=== PATIENT | male | born 1970 | race Caucasian/White ===

== ENCOUNTER → 2017-08-23 08:41 | Outpatient (CLI) | payer BC, SELFPAY ==
--- NOTE | 2017-08-23 08:45 | RAD_ITS ---
STUDY: X-RAY - LEFT KNEE REASON FOR EXAM: Male, 47 years old. Continued and the pain postop TECHNIQUE: 4 view(s) of the knee. COMPARISON: None. FINDINGS: There are postoperative changes in the distal femur and proximal tibia related to prior ACL reconstruction. Normal proximal tibiofibular articulation. There is moderate degenerative arthrosis of the medial femorotibial compartment with moderate joint space narrowing. Normal lateral femorotibial compartment. Normal patellofemoral articulation. The soft tissue structures are unremarkable. RAD/Knee 4 or More Views IMPRESSION: Status post ACL reconstruction. Moderate arthrosis of the medial compartment Electronically Signed: Jose Lane MD, FACR at 8:58 EST , Service support ,
== END ==
PROVIDERS: Visit Provider Orthopaedic Surgery
DX: M25.562 Pain in left knee (principal)
CPT/HCPCS: 73564

== ENCOUNTER 2017-08-30 07:45 | Outpatient (RCR) | payer BC, SELFPAY ==
--- NOTE | 2017-08-30 10:02 | HP.PTEVAL ---
Patient's Visit Information FARA MARADIAGA is a 47 year old M referred to Physical Therapy by DO LEONARDO Lazo with a diagnosis of L IT BAnd tightness and L knee OA. Date of Evaluation: 08/30/17 Physical Therapist: Mamie Damon - Visit Plan Frequency: 2x /Week Duration: 4 Weeks Plan: 2X/ week for 4 weeks for foam rolling, IT band, TFL, HS - Subjective Subjective: Pt reports that his L knee swells a little. He fees like there is a igament that bounces over the side of his knee and it aches and swells. He has taken it easy this winter. He is able to run on the elliptical machine and it doesn't bother it. He coaches football and runs alot. He was walking on a lot of sand and muddy soils and that bothers it. No MRI as of yet. The knee will make a clicking sound and he feels like it is alos up in the hip. He will have that shifting in his knee and will ache for a month or two. No injections. Stairs are ok most of the time. Its hard to put on shoes or tie shoes. When they work on low back in chiro then the knee feels better - Pain L knee pain Pain Intensity (Out of 10): 1 Pain Intensity Range: 5 - Objective Tight L IT band. Observation: obvious increase in size of tissue a t fibular head and It band insertion. Tender at IT Band insertion and along the band on the L....tender posterior hip musculature and lower lumbar along the iliac crest. Tight B HS and gastroc complex B but worse on the L. Trunk AROM: flex 100%, ext 75%, SB B 75%. LE MMT: hip flex B 4+/5, knee ext B 4+/5, knee flex L 4-/5 with increase clunking with resisted MMT and R knee flex 4+/5. Hip ext B 4/5. Pt is able to walk on heels and toes without issue. Gait: pt walks with decreased stance time on the L. OHS: increase favor on the R, toe out, knees over toes. - Goals Goal 1:: I HEP including foam rolling Goal Time Frame: 4-6 Weeks Goal 2:: Be able to run without having increase in knee pain and swell (pain 1/10 or less after running) Goal Time Frame: 4-6 Weeks Goal 3:: Decrease size of swelling at fibular head and IT band insertion Goal Time Frame: 4-6 Weeks - Rehabilitation Potential Rehabilitation Potential: Good - Anticipated Interventions Patient/Client Instruction: Educate patient on: Condition, Plan of Care For the Purpose of:: To decrease pain, To decrease swelling/inflammation, To improve nutrient delivery to tissue, To improve muscle performance and motor function, To improve ability to perform ADL's, To increase tolerance to activity/condition/position Therapeutic Exercise to Include: Strength training, Flexibilty training, Passive ROM, Active ROM, Dynamic Lumbar Stabilization For the Purpose of:: To decrease pain, To increase ROM, To improve nutrient delivery to tissue, To improve muscle performance and motor function, To improve ability to perform ADL's, To increase tolerance to activity/condition/position, To improve health of tissue Manual Therapy Techniques to Include: Mobilization, Soft tissue mobilization For the Purpose of:: To decrease pain, To increase ROM, To improve nutrient delivery to tissue, To improve muscle performance and motor function Thermo therapy (hot pack): Yes Ultrasound (thermal/non thermal): Yes For the Purpose of:: To decrease pain, To decrease swelling/inflammation, To increase ROM, To improve nutrient delivery to tissue Thank you for the opportunity to evaluate your patient. For Medicare and Medicare HMO plans, please review the plan of care and approve it. It will need to be FAXED BACK to us at [phone] for Medicare purposes. Please let me know if there are questions or concerns regarding this plan of care. Physician Signature: Date:
--- NOTE | 2017-08-30 10:07 | HP.PTEVAL_ITS ---
Patient's Visit Information FARA MARADIAGA is a 47 year old M referred to Physical Therapy by DO LEONARDO Lazo with a diagnosis of L IT BAnd tightness and L knee OA. Date of Evaluation: 08/30/17 Physical Therapist: Mamie Damon - Visit Plan Frequency: 2x /Week Duration: 4 Weeks Plan: 2X/ week for 4 weeks for foam rolling, IT band, TFL, HS - Subjective Subjective: Pt reports that his L knee swells a little. He fees like there is a igament that bounces over the side of his knee and it aches and swells. He has taken it easy this winter. He is able to run on the elliptical machine and it doesn't bother it. He coaches football and runs alot. He was walking on a lot of sand and muddy soils and that bothers it. No MRI as of yet. The knee will make a clicking sound and he feels like it is alos up in the hip. He will have that shifting in his knee and will ache for a month or two. No injections. Stairs are ok most of the time. Its hard to put on shoes or tie shoes. When they work on low back in chiro then the knee feels better - Pain L knee pain Pain Intensity (Out of 10): 1 Pain Intensity Range: 5 - Objective Tight L IT band. Observation: obvious increase in size of tissue a t fibular head and It band insertion. Tender at IT Band insertion and along the band on the L....tender posterior hip musculature and lower lumbar along the iliac crest. Tight B HS and gastroc complex B but worse on the L. Trunk AROM: flex 100%, ext 75%, SB B 75%. LE MMT: hip flex B 4+/5, knee ext B 4+/5, knee flex L 4-/5 with increase clunking with resisted MMT and R knee flex 4+/5. Hip ext B 4/5. Pt is able to walk on heels and toes without issue. Gait: pt walks with decreased stance time on the L. OHS: increase favor on the R, toe out, knees over toes. - Goals Goal 1:: I HEP including foam rolling Goal Time Frame: 4-6 Weeks Goal 2:: Be able to run without having increase in knee pain and swell (pain 1/ 10 or less after running) Goal Time Frame: 4-6 Weeks Goal 3:: Decrease size of swelling at fibular head and IT band insertion Goal Time Frame: 4-6 Weeks - Rehabilitation Potential Rehabilitation Potential: Good - Anticipated Interventions Patient/Client Instruction: Educate patient on: Condition, Plan of Care For the Purpose of:: To decrease pain, To decrease swelling/inflammation, To improve nutrient delivery to tissue, To improve muscle performance and motor function, To improve ability to perform ADL's, To increase tolerance to activity /condition/position Therapeutic Exercise to Include: Strength training, Flexibilty training, Passive ROM, Active ROM, Dynamic Lumbar Stabilization For the Purpose of:: To decrease pain, To increase ROM, To improve nutrient delivery to tissue, To improve muscle performance and motor function, To improve ability to perform ADL's, To increase tolerance to activity/condition/ position, To improve health of tissue Manual Therapy Techniques to Include: Mobilization, Soft tissue mobilization For the Purpose of:: To decrease pain, To increase ROM, To improve nutrient delivery to tissue, To improve muscle performance and motor function Thermo therapy (hot pack): Yes Ultrasound (thermal/non thermal): Yes For the Purpose of:: To decrease pain, To decrease swelling/inflammation, To increase ROM, To improve nutrient delivery to tissue Thank you for the opportunity to evaluate your patient. For Medicare and Medicare HMO plans, please review the plan of care and approve it. It will need to be FAXED BACK to us at [phone] for Medicare purposes. Please let me know if there are questions or concerns regarding this plan of care. Physician Signature: Date:
--- NOTE | 2017-12-07 13:49 | HP.PTDCNRP_ITS ---
HP - Discharge Summary (1) - Patient Information FARA MARADIAGA was seen in my office for initial evaluation on 08/30/17. The following Plan of Care was established for this patient: Initial Frequency: 2x /Week Initial Duration: 4 Weeks - Anticipated Interventions Patient/Client Instruction: Educate patient on: Condition, Plan of Care For the Purpose of:: To decrease pain, To decrease swelling/inflammation, To improve nutrient delivery to tissue, To improve muscle performance and motor function, To improve ability to perform ADL's, To increase tolerance to activity /condition/position Therapeutic Exercise to Include: Strength training, Flexibilty training, Passive ROM, Active ROM, Dynamic Lumbar Stabilization For the Purpose of:: To decrease pain, To increase ROM, To improve nutrient delivery to tissue, To improve muscle performance and motor function, To improve ability to perform ADL's, To increase tolerance to activity/condition/ position, To improve health of tissue Manual Therapy Techniques to Include: Mobilization, Soft tissue mobilization For the Purpose of:: To decrease pain, To increase ROM, To improve nutrient delivery to tissue, To improve muscle performance and motor function Thermo therapy (hot pack): Yes Ultrasound (thermal/non thermal): Yes For the Purpose of:: To decrease pain, To decrease swelling/inflammation, To increase ROM, To improve nutrient delivery to tissue This patient was last seen in our office 08/30/17. Pertinent comments regarding their Physical therapy will appear below: KEVIN PT. Pt did not schedule any additional visits after his initial eval. At this point I will be discontinuing this patient from physical therapy. I would be happy to see this patient again in the future if found appropriate by the physician. Thank you! Mamie Damon
== END 2017-08-30 19:00 | disposition home or self-care (01) ==
LOC: PT 07:45
PROVIDERS: Family Provider Nurse Practitioner; PCP Nurse Practitioner; Visit Provider Orthopaedic Surgery
DX: M76.32 Iliotibial band syndrome, left leg (principal); M17.12 Unilateral primary osteoarthritis, left knee
CPT/HCPCS: 97161

== ENCOUNTER → 2019-06-05 22:26 | Outpatient (CLI) | payer OTHER, SELFPAY ==
[2019-02-26 16:59] VITALS: BMI 33.0
[2019-06-05 22:56] LABS: Absolute Lymphocyte Count 2.42 X10^3/uL (0.83-4.51); Absolute Neutrophil Count 4.7 X10^3/uL (2.0-7.7); Basophil# 0.04 X10^3/uL; Basophil% 0.5 % (0-1); Eosinophil# 0.15 X10^3/uL; Eosinophils% 1.9 % (0-5); Hematocrit 41.6 % (40-54); Hemoglobin 13.7 g/dL (13.0-16.5); Lymphocyte # 2.42 X10^3/ul (4.0); Lymphocyte % 30.7 % (19-41); Mean Corp Hgb Conc 32.9 g/dL (32-36); Mean Corpuscular Hgb 31.4 pg (27.0-32.0); Mean Corpuscular Volume 95.4 fL (80-94); Monocyte# 0.53 X10^3/uL; Monocyte% 6.7 % (0-10); NRBC Flagged by Analyzer 0 % (0-5); Neutrophil # 4.72 X10^3/uL (2.7-7.7); Neutrophil % 59.9 % (47-70); Platelet Count 252 K/mm3 (150-450); RBC Distribution Width CV 11.9 % (11.6-14.6); RBC Distribution Width SD 41.2 fl (35.1-43.9); Red Blood Count 4.36 M/mm3 (4.6-6.2); White Blood Count 7.9 K/mm3 (4.4-11.0)
[2019-06-05 23:09] LABS: ALB/GLOB Ratio 1.2 RATIO (0.9-2.4); AST(SGOT) 18 U/L (15-37); Alanine Aminotransfer ALT/SGPT 24 U/L (16-61); Albumin, Serum 4.3 g/dL (3.2-5.0); Alkaline Phosphatase 61 U/L (45-117); Anion Gap 7 (5-15); BUN 15 mg/dL (7-18); BUN/Creat Ratio 17.5 RATIO (10-20); Chloride 103 mmol/L (98-107); Cholesterol 221 mg/dL (200); Creatinine, Serum 0.86 mg/dL (0.70-1.30); EST Glomerular Filtration Rate 101 mL/min (>60); Est Glom Filt Rate - Afr Amer 123 mL/min (>60); Globulin 3.5 g/dL (2.2-4.2); Glucose 81 mg/dL (74-106); High Density Lipoprotein 50 mg/dL; Potassium 3.9 mmol/L (3.5-5.1); Protein, Total 7.8 g/dL (6.4-8.2); Sodium Level 137 mmol/L (136-145); Triglycerides 107 mg/dL; Very Low Density Lipoprotein 21 mg/dL (5-40)
== END ==
PROVIDERS: Family Provider Nurse Practitioner; PCP Nurse Practitioner; Referring Provider Nurse Practitioner; Visit Provider Nurse Practitioner
DX: Z00.00 Encounter for general adult medical examination without abnormal findings (principal)
CPT/HCPCS: 80053; 80061; 85025

== ENCOUNTER → 2023-07-21 | Outpatient (CLI) | payer BC, SELFPAY ==
--- OUTSIDE RECORDS SUMMARY | 2023-07-21 21:59 | XMS RPT_ITS | CCD ---
Author Name Unknown Address [address] [place] [address] Organization [facility] Results Test Name Value Interpretation Reference Range Facil ity Summary Purpose Family History No Family History Records FoundNo Family History Records FoundNo Family History Records Found Advance Directives No Advanced Directives Records FoundNo Advanced Directives Records FoundNo Advanced Directives Records Found Hospital Course Note HNO ID: [id number] Author: Samuel Martínez Service: Hospital Medicine Author Type: Physician Type: Discharge Summary Filed: 02/20/2019 2:47 PM Note Text: DISCHARGE SUMMARY PATIENT NAME: Fara Maradiaga Code Status: Not on file Highest Readmission Risk Score: 8 The 30 day readmissions risk score is derived from an internally validated risk model which evaluates patient level characteristics, utilization history, medication orders and lab results up until the day of discharge. Patients with a score of 40 or above are considered highest risk for readmission. Specific patient level drivers will be listed at the bottom of the summary. Admission Information Admission Information ADMIT DATE: 02/19/2019 DISCHARGE DATE: 02/20/2019 [facility]CT[facility] AND MEDICAL TEAM: [facility] Doctor: Aj Martínez Primary Care Provider: Leydi Kan NP My Medical Team Members: Treatment Team: Attending Provider: Aj Martínez Primary Service: Team 2 Me Consulting: Tej Nagy Am (more content not included)... Additional Source Comments (unrecognized sect ion and content) No Status Records FoundNo Status Records FoundNo Status Records Found INFORMATION SOURCE (unrecogn ized section and content) DATE CREATED AUTHOR AUTHOR'S ORGANIZ ATION 06/29/2019 [facility] DATE CREATED AUTHOR AUTHOR'S ORGANIZ ATION 08/18/2021 [facility] FOR RECORDS PERTAINING TO PATIENTS WHO ARE OR HAVE BEEN ENROLLED IN A CHEMICAL DEPENDENCY/SUBSTANCEABUSE PROGRAM, SOME INFORMATION MAY BE OMITTED. This clinical summary was aggregated from multiple sources. Caution should be exercised in using it in the provision of clinical care. This summary normalizes information from multiple sources, and as a consequence, information in this document may materially change the coding, format and clinical context of patient data. In addition, data may be omitted in some cases. CLINICAL DECISIONS SHOULD BE BASED ON THE PRIMARY CLINICAL RECORDS. [facility] [employer] [facility]. provides no warranty or guarantee of the accuracy or completeness of information in this document.
[2023-07-21 22:06] LABS: Absolute Neutrophil Count 2.4 X10^3/uL (2.0-7.7); Basophil# 0.04 X10^3/uL; Basophil% 0.9 % (0-1); Eosinophil# 0.14 X10^3/uL; Hematocrit 45.9 % (40-54); Hemoglobin 15.6 g/dL (13.0-16.5); Lymphocyte % 34.6 % (19-41); Mean Corpuscular Hgb 31.7 pg (27.0-32.0); Mean Corpuscular Volume 93.3 fL (80-94); Mean Platelet Vol. 11.1 fl (6.2-12.0); Monocyte# 0.44 X10^3/uL; Monocyte% 9.5 % (0-10); NRBC Flagged by Analyzer 0 % (0-5); Neutrophil % 51.8 % (47-70); Platelet Count 262 K/mm3 (150-450); RBC Distribution Width CV 11.7 % (11.6-14.6); RBC Distribution Width SD 39.8 fl (35.1-43.9); Red Blood Count 4.92 M/mm3 (4.6-6.2); White Blood Count 4.6 K/mm3 (4.4-11.0)
[2023-07-21 22:32] LABS: ALB/GLOB Ratio 1.2 RATIO (0.9-2.4); AST(SGOT) 21 U/L (15-37); Alanine Aminotransfer ALT/SGPT 68 U/L (16-61); Albumin, Serum 4.3 g/dL (3.2-5.0); Alkaline Phosphatase 69 U/L (45-117); Anion Gap 6 (5-15); BUN 21 mg/dL (7-18); BUN/Creat Ratio 23.1 RATIO (10-20); Calcium,Total 10.2 mg/dL (8.5-10.1); Chloride 105 mmol/L (98-107); Cholesterol 250 mg/dL (200); Creatinine, Serum 0.91 mg/dL (0.70-1.30); EST Glomerular Filtration Rate 93 mL/min (>60); Est Glom Filt Rate - Afr Amer 112 mL/min (>60); Globulin 3.6 g/dL (2.2-4.2); Glucose 100 mg/dL (74-106); High Density Lipoprotein 45 mg/dL; PSA,Total- Diagnostic 0.78 ng/mL (0.0-4.0); Potassium 4.2 mmol/L (3.5-5.1); Protein, Total 7.9 g/dL (6.4-8.2); Sodium Level 139 mmol/L (136-145); Thyroid Stim Hormone (TSH) 1.17 uIU/mL (0.358-3.74); Triglycerides 98 mg/dL; Very Low Density Lipoprotein 20 mg/dL (5-40)
[2023-07-21 23:17] LABS: Vitamin D,25 Hydroxy 39.6 ng/mL
== END | disposition home or self-care (01) ==
PROVIDERS: PCP Nurse Practitioner; Visit Provider Nurse Practitioner
DX: Z00.00 Encounter for general adult medical examination without abnormal findings (principal)
CPT/HCPCS: 80053; 80061; 82306; 84153; 84443; 85025